=== PATIENT | male | born 1975 | race Caucasian/White ===

== ENCOUNTER 2020-11-19 21:18 | Emergency (ER) | payer SELFPAY ==
[2020-11-19 21:19] VITALS: BP 137/85; PULSE 98; RESP 18; TEMP 37.2; O2SAT 99; BMI 71.5
--- NOTE | 2020-11-19 21:20 | ED.RN ---
NO OLD EKGS IN MUSE
--- NOTE | 2020-11-19 21:37 | CT_ITS ---
STUDY: CTA CHEST REASON FOR EXAM: Male, 45 years old. pleuritic cp, hx DVT, recent travel RADIATION DOSAGE (If Supplied By Facility): CTDIvol = ( 38.53 ) mGy, DLP = ( 835.89 ) mGycm TECHNIQUE: The examination was performed with the intravenous administration of IV 100mL Isovue-370. Post-processing of the angiographic images was performed, with multiplanar reformation and 3D reconstruction. Individualized dose optimization techniques were used for this CT. COMPARISON: None. FINDINGS: Normal enhancement of the main pulmonary artery and right and left pulmonary arteries. Normal enhancement of the bilateral peripheral pulmonary arteries. There is no demonstrated pulmonary embolism. Normal thoracic aorta and visualized great vessels. There is no demonstrated aortic dissection. Normal heart and pericardium. Multiple small mediastinal lymph nodes, nonspecific in nature. Pretracheal lymph node measuring 1.6 x 1.3 cm with subcarinal lymph node measuring 2.7 x 1.5 cm. Normal hilar regions. Normal visualized trachea and bronchi. The lungs are well expanded. Normal pulmonary parenchyma. Normal pleura. Normal chest wall structures. Normal osseous structures. Normal visualized upper abdomen. CT/CTA Chest W/WO Contrast IMPRESSION: Normal CTA chest examination, without a demonstrated pulmonary embolism or arterial dissection. Lungs appear clear. Nonspecific mediastinal lymph nodes. Electronically Signed: Nelson Stephenson DO at 22:52 EDT Tel , Service support ,
--- NOTE | 2020-11-19 21:37 | EKG12_ITS ---
Test Reason : CP Blood Pressure : / mmHG Vent. Rate : 092 BPM Atrial Rate : 092 BPM P-R Int : 150 ms QRS Dur : 090 ms QT Int : 374 ms P-R-T Axes : 057 053 062 degrees QTc Int : 462 ms Normal sinus rhythm Normal ECG Confirmed by NOELLE ROJAS, SATYA ([id number]), editor map SYLVESTER MCQUEEN ([id number]) on 11/21/2020 8:41:29 AM Referred By: MARCUS MCDONALD Confirmed By:MEY DRAKE MD
--- NOTE | 2020-11-19 21:38 | ED.VIS.CHEST ---
History of Present Illness Chief Complaint: Chest Pain Informant: Patient, EMS Onset: Yesterday Activity at onset: Rest Timing: Intermittent Quality: - - tightness Location: - - entire chest, radiating into left neck Current Severity: Moderate Maximum Severity: Moderate Worsened By: Breathing Relieved By: Nothing. Not Relieved By: NTG - given by EMS Associated Symptoms: Nausea, Dyspnea, Palpitations. Negative for: Vomiting, Diaphoresis, Cough, Fever, Lightheadedness Narrative: Pleuritic chest pain in an obese patient with significant history of smoking, is a type II diabetic, with no known history of heart disease or pulmonary embolus. He no longer is anticoagulated. He had a trip to [place] recently, about 1 week ago he returned. He denies any pain or swelling in either leg. States he had a stress test once that was negative, no history of heart cath. Stop smoking about a year ago, history of approximately [id number] history. He takes aspirin daily, no anticoagulants anymore. CVD Risk Factors: Diabetes, Smoking PE Risk Factors: Recent Travel/Surgery, Prior DVT or PE - Past Medical History (1) Type 2 diabetes mellitus Status: Chronic (2) Seizure disorder Status: Chronic (3) Asthma Status: Chronic Past Medical History - Allergies and Home Meds Allergies/Adverse Reactions: Allergies meperidine [From Demerol] Allergy (Verified 11/19/20 21:19) Other Primary Care Physician: [facility] Doctor,Out of [NON-STAFF] - Smoking Status: Former smoker Review of Systems General: Reports: Malaise. Denies: Chills, Fever, Sweats Eyes: Denies: Visual changes - bilaterally, Diplopia ENT: Denies: Rhinorrhea, Sore throat Cardiovascular: Reports: Chest pain, Palpitations Respiratory: Reports: Dyspnea. Denies: Cough, Dyspnea on exertion Gastrointestinal: Reports: Nausea. Denies: Abdominal pain, Vomiting, Diarrhea, Melena, Hematochezia Genitourinary: Denies: Dysuria, Hematuria, Frequency Musculoskeletal: Reports: Neck pain. Denies: Back pain, Swelling, Extremity Pain Skin: Denies: Rash, Wounds Neurological: Denies: Headache, Weakness, Numbness Physical Exam Vital Signs/Narrative: Vital Signs Temp Pulse Resp BP Pulse Ox 11/19/20 21:19 99.0 F 98 18 137/85 H 99 Inital Vital Signs reviewed: Yes General: Well nourished, Well developed, Obese - Morbidly, No Acute Distress Head: Normocephalic, Atraumatic Eyes: Perrl, EOMI ENT: Moist mucous membranes, No rhinorrhea Neck: Supple, Nontender, No lymphadenopathy Cardiovascular: Regular rate, Regular rhythm, No murmurs Respiratory: No distress, CTA bilaterally, Chest nontender Abdomen: Soft, Nontender, Nondistended, Normal bowel sounds Back: Nontender, Normal Inspection Extremities: Nontender, No edema. Negative for: Calf Tenderness Skin: Normal color, No rash, No Trauma Neurological: Alert, Oriented x3, Cranial nerves II-XII grossly intact, Normal Strength, Normal Sensation Psychological: Normal affect, Normal Mood Diagnostic/Tx/Re-eval - Rhythm Strip Rhythm Strip: Sinus Rhythm Rate: 92 Ectopy: PVC(s) - EKG Initial EKG Interpretation: Sinus Rhythm, No Acute Injury Pattern - nml ekg, - - No [id number] pattern Follow-up EKG - feeling palpitations actively Interpretation: Sinus Rhythm, No Acute Injury Pattern Prior: Unchanged Treatment: GI Cocktail Repeat Eval: Improved - Medical Decision Making Work-up was unremarkable. Given his higher/intermediate risk for pulmonary embolus, I avoided D-dimer measurement and went right to CT angiography of the chest, results are as above, the CT was normal showing no pulmonary embolus. His heart score is 1, 0, 0, 2, 0 = 3. He meets criteria for the delta troponin protocol, which I think is reasonable and if negative, discharge him home with close outpatient follow-up. He was given a GI cocktail and is feeling much better. He is in agreement with this plan. Of note he continues to feel palpitations that are continuous. He states it feels like his heart is beating hard not necessarily irregularly. I watched his rhythm at the bedside during this, there was no ectopy. Earlier in his visit, there appeared to be some ectopy but he was not necessarily having acute symptoms just during that and it was difficult to tell if it was artifact or not, the SPO2 did not necessarily correlate with this possible rhythm disturbance, indicating that it is probably artifactual. After GI cocktail since he is improved, I think at this time we will monitor him and if his delta is negative, discharge him on omeprazole. ED Disposition - Plan for ED Patient: Disposition: Home or Assisted Living Diagnosis: Chest pain, unspecified Instructions: ED Chest Pain, Uncertain Cause Prescriptions: Omeprazole 1 cap PO DAILY #30 capsule. Prescription Printed Referrals: [facility] Doctor,Out of [NON-STAFF] - 3-5 Days if not improving
[2020-11-19] MEDS: Ondansetron 4 MG/2 ML Vial IV (21:46)
[2020-11-19] MEDS: 0.9% Normal Saline 1,000 ML 1000 ML IV (21:46)
[2020-11-19 21:51] LABS: Absolute Lymphocyte Count 2.16 X10^3/uL (0.83-4.51); Absolute Neutrophil Count 5.9 X10^3/uL (2.0-7.7); Basophil# 0.03 X10^3/uL; Basophil% 0.3 % (0-1); Eosinophil# 0.05 X10^3/uL; Eosinophils% 0.6 % (0-5); Hematocrit 45.2 % (40-54); Lymphocyte # 2.16 X10^3/ul (0.83-4.51); Lymphocyte % 24.7 % (19-41); Mean Corp Hgb Conc 33.2 g/dL (32-36); Mean Corpuscular Hgb 28.1 pg (27.0-32.0); Mean Corpuscular Volume 84.8 fL (80-94); Monocyte# 0.61 X10^3/uL; NRBC Flagged by Analyzer 0 % (0-5); Neutrophil # 5.87 X10^3/uL (2.7-7.7); Neutrophil % 67.1 % (47-70); Platelet Count 208 K/mm3 (150-450); RBC Distribution Width CV 13.1 % (11.6-14.6); RBC Distribution Width SD 39.8 fl (35.1-43.9); Red Blood Count 5.33 M/mm3 (4.6-6.2); White Blood Count 8.8 K/mm3 (4.4-11.0)
[2020-11-19 22:00] VITALS: BP 138/77; PULSE 90; RESP 12; O2SAT 98
[2020-11-19 22:09] LABS: Anion Gap 8 (5-15); BUN 11 mg/dL (7-18); BUN/Creat Ratio 11.9 RATIO (10-20); Calcium,Total 8.7 mg/dL (8.5-10.1); Chloride 96 mmol/L (98-107); Creatinine, Serum 0.92 mg/dL (0.70-1.30); EST Glomerular Filtration Rate 94 mL/min (>60); Est Glom Filt Rate - Afr Amer 114 mL/min (>60); Estimated Creatinine Clearance 99.13 ml/min; Glucose 131 mg/dL (74-106); Potassium 3.7 mmol/L (3.5-5.1); Sodium Level 133 mmol/L (136-145)
--- NOTE | 2020-11-19 22:35 | EKG12_ITS ---
Test Reason : REPEAT Blood Pressure : / mmHG Vent. Rate : 082 BPM Atrial Rate : 082 BPM P-R Int : 154 ms QRS Dur : 094 ms QT Int : 404 ms P-R-T Axes : 057 053 067 degrees QTc Int : 472 ms Normal sinus rhythm Normal ECG Confirmed by NOELLE ROJAS, SATYA ([id number]), digital editor SYLVESTER MCQUEEN ([id number]) on 11/21/2020 8:42:02 AM Referred By: TAMARA Confirmed By:MEY DRAKE MD
[2020-11-19 22:46] VITALS: BP 152/86; PULSE 85; RESP 18; O2SAT 98
[2020-11-19 23:00] VITALS: BP 150/73; PULSE 87; RESP 17; O2SAT 99
[2020-11-19] MEDS: Mag Hydrox/Al Hydrox/Simeth 30 ML UDC PO (23:03)
[2020-11-20 01:08] VITALS: BP 141/82; PULSE 84; RESP 16; O2SAT 97
[2020-11-20 01:52] VITALS: BP 150/72; PULSE 78; RESP 16
== END 2020-11-20 01:53 | disposition home or self-care (01) ==
PROVIDERS: Emergency Provider Emergency Medicine
DX: R07.9 Chest pain, unspecified (principal); E66.01 Morbid (severe) obesity due to excess calories; E11.9 Type 2 diabetes mellitus without complications; J45.909 Unspecified asthma, uncomplicated; G40.909 Epilepsy, unspecified, not intractable, without status epilepticus; Z79.82 Long term (current) use of aspirin; Z86.718 Personal history of other venous thrombosis and embolism; Z87.891 Personal history of nicotine dependence; Z88.5 Allergy status to narcotic agent
CPT/HCPCS: 71275; 80048; 84484; 85025; 93005; 96361; 96374; 99285; Q9967; A4216; J2405